=== PATIENT | female | born 1965 | race Caucasian/White ===

== ENCOUNTER 2017-01-29 02:42 | Inpatient (IN) | payer OTHER ==
[~2017-01-29] VITALS: Ht 165.1 cm; Wt 74.3 kg
[~2017-01-29 02:42] MED LIST: ADDERALL20 MG PO; CLONIDINE HCL0.1 MG PO; CYMBALTA30 MG PO; CYMBALTA60 MG PO; KLONOPIN0.25 MG SL; LACTULOSE10 GM/151 PO; LISINOPRIL20 MG PO; NEXIUM40 MG PO; NORVASC2.5 MG PO; Prilosec PO; SEROQUEL100 MG PO; SULFADIAZINE500 MG PO
[2017-01-29 04:09] LABS: CHLORIDE 104 mEq/L (99-109); POTASSIUM 3.8 mEq/L (3.7-5.4); SODIUM 138 mEq/L (136-147)
[2017-01-29 04:10] LABS: GLUCOSE 113 mg/dL (70-99)
[2017-01-29 04:12] LABS: ANION GAP 10 MEQ/L (2-14); HEMATOCRIT 30.1 % (36.0-46.0); MCH 20.8 PG (29.0-34.0); MCHC 29.2 G/DL (30.0-36.0); MEAN PLAT.VOLUME 8.9 uM^3 (9.5-12.4); PLATELET COUNT 356 K/uL (156-360); RBC DIS.WIDTH-CV 16.2 % (11.8-14.6); RBC DIS.WIDTH-SD 40.8 % (39-53); RED BLOOD COUNT 4.24 M/uL (3.80-5.20)
[2017-01-29 04:14] LABS: GFR ESTIMATE (CALCULATED) > 59 mL/min/; TOTAL BILIRUBIN 0.3 mg/dL (0.0-1.0)
[2017-01-29 04:15] LABS: ALKALINE PHOSPHATASE 66 IU/L (3-129); UREA NITROGEN (BUN) 17 mg/dL (9-23)
[2017-01-29 04:17] LABS: DIRECT BILIRUBIN 0.1 mg/dL (0.0-0.3)
[2017-01-29 04:18] LABS: LIPASE 7 U/L (1.0-51.0)
[2017-01-29 04:20] LABS: TROP-I INTERPRETATION NEGATIVE; TROPONIN-I < 0.01 ng/mL (0.0-0.30)
[2017-01-29 06:38] LABS: TROP-I INTERPRETATION NEGATIVE; TROPONIN-I < 0.01 ng/mL (0.0-0.30)
[2017-01-29 07:32] LABS: SAMPLE HEMOLYSIS CHECK 0; SAMPLE ICTERIC CHECK 0; SAMPLE LIPEMIA CHECK 0
[2017-01-29 07:39] LABS: SERUM ETHYL ALCOHOL < 10 mg/dL
[2017-01-29 12:45] VITALS: BP 123/71
[2017-01-29] MEDS ORDERED: LEXAPRO20 MG PO (13:03)
[2017-01-29] MEDS ORDERED: ADDERALL20 MG PO (13:04)
[2017-01-29] MEDS ORDERED: KLONOPIN0.5 M1 PO (13:05)
[2017-01-29] MEDS ORDERED: ERGOCALCIF50000 UNIT PO ×2 (13:05→14:44)
[2017-01-29] MEDS ORDERED: AMBIEN5 MG PO (13:06)
[2017-01-29] MEDS ORDERED: ZANAFLEX2 M1 PO (13:07)
[2017-01-29] MEDS ORDERED: CYANOCOBALAM1000 MCG PO (13:08)
[2017-01-29] MEDS ORDERED: FOLIC ACID1 MG PO (13:08)
[2017-01-29] MEDS ORDERED: CYANOCOBAL1000 MCG/2 IM (13:45)
[2017-01-29 15:59] VITALS: BP 149/76
[2017-01-29 19:46] VITALS: BP 118/73
[2017-01-30 07:58] VITALS: BP 119/66
[2017-01-30 14:57] VITALS: BP 124/64
[2017-01-31 07:28] VITALS: BP 118/71
[2017-01-31] MEDS ORDERED: BUPROPION HCL75 MG PO (10:58)
[2017-01-31] MEDS ORDERED: KLONOPIN0.5 M1 PO (10:58)
== END 2017-01-31 12:50 | disposition home or self-care (01) | DRG 885 ==
LOC: EME 02:42 → 1WEST 11:13 → EDOF 11:13 → 1WEST 12:38
PROVIDERS: Emergency Medicine
DX: F32.1 Major depressive disorder, single episode, moderate (principal); E55.9 Vitamin D deficiency, unspecified; D64.9 Anemia, unspecified; I73.00 Raynaud's syndrome without gangrene; I10 Essential (primary) hypertension; F41.1 Generalized anxiety disorder
CPT/HCPCS: 70551; 71020; 80048; 80076; 83690; 84484; 85027; 90839; 93005; 97165 GO; 99281; 99285; G0480; J1200; J2060; J2405; J3010; J7030